=== PATIENT | female | born 1990 | race Caucasian/White ===

== ENCOUNTER 2018-12-17 12:57 | Emergency (ER) | payer OTHER ==
[~2018-12-17] VITALS: Ht 162.5 cm; Wt 86.2 kg
[~2018-12-17 12:57] MED LIST: AMOXICILLIN500 MG PO; CYCLOBENZAPRINE10 MG PO; FLEXERIL5 MG PO; MACROBID100 M1 PO; MOTRIN800 MG PO; NAPROSYN500 MG PO; ROBITUSSIN AC 110 ML PO; SUDAFED60 M1 PO
[2018-12-17] MEDS ORDERED: IBUPROFEN600 MG PO (13:10)
[2018-12-17] MEDS ORDERED: AMOXICILLIN500 M2 PO (13:10)
== END 2018-12-17 13:53 | disposition home or self-care (01) ==
LOC: ED 12:57
DX: K02.9 Dental caries, unspecified (principal)

== ENCOUNTER 2023-07-17 11:43 | Emergency (ER) | payer OTHER ==
[~2023-07-17] VITALS: Ht 160 cm; Wt 82.6 kg
[~2023-07-17 11:43] MED LIST changes: +AMOXICILLIN500 M2 PO; +IBUPROFEN600 MG PO
[2023-07-17] MEDS ORDERED: PENICILLIN VK500 MG PO (12:37)
[2023-07-17] MEDS ORDERED: Motrin,Rufen800 MG PO (12:37)
[2023-07-17] MEDS ORDERED: Lidocaine Hydrochloride 15 ML UDC PO STA (12:38)
[2023-07-17] MEDS ORDERED: BENZOCAINE 20% 11.9 GM GEL T STA (12:38)
[2023-07-17] MEDS ORDERED: PENICILLIN V POTASSIUM 500 MG TAB PO ONE (12:40)
[2023-07-17] MEDS ORDERED: Acetaminophen/Hydrocodone 5 MG/325 MG TABLET PO ONE (12:40)
== END 2023-07-17 12:48 | disposition home or self-care (01) ==
LOC: ED 11:43
DX: K04.7 Periapical abscess without sinus (principal); Z87.891 Personal history of nicotine dependence

== ENCOUNTER → 2023-12-15 | Outpatient (CLI) | payer OTHER ==
[~2023-12-15] MED LIST changes: +Motrin,Rufen800 MG PO; +PENICILLIN VK500 MG PO
== END | disposition home or self-care (01) ==
LOC: US 09:30
PROVIDERS: ATTEND Nurse Practitioner Women's Health
DX: Z34.81 Encounter for supervision of other normal pregnancy, first trimester (principal); Z3A.10 10 weeks gestation of pregnancy

== ENCOUNTER → 2025-02-20 | Outpatient (CLI) | payer OTHER | END | disposition home or self-care (01) | LOC: US 13:54 | PROVIDERS: ATTEND Nurse Practitioner Women's Health | DX: O34.81 Maternal care for other abnormalities of pelvic organs, first trimester (principal); N83.12 Corpus luteum cyst of left ovary; Z3A.09 9 weeks gestation of pregnancy ==